=== PATIENT | female | born 1950 | race African-American/Black ===

== ENCOUNTER 2018-09-02 11:06 | Outpatient (CLI) | payer MEDICARE, BC ==
--- NOTE | 2018-09-02 13:37 | RAD ---
TWO VIEWS CHEST: Comparison: 08-05-13 History: Cough. FINDINGS: Two views of the chest show normal sized cardiomediastinal silhouette. There is no evidence of consol idation, mass, or pleural effusion. The bones are unremarkable. IMPRESSION: No evidence of acute cardiopulmonary disease. POS: [facility]
--- NOTE | 2018-09-02 13:56 | RAD ---
SINUSES 3 VIEWS: Date: 09/02/18 HISTORY: Sinusitis. FINDINGS/IMPRESSION: The paranasal sinuses appear well aerated. No air fluid levels are seen. POS: [facility]
== END 2018-09-02 11:07 | disposition home or self-care (01) ==
LOC: BICRAD 11:06
PROVIDERS: ATTEND Internal Medicine
DX: R05 Cough (principal); J32.9 Chronic sinusitis, unspecified
CPT/HCPCS: 70220; 71046

== ENCOUNTER 2018-11-26 12:06 | Outpatient (CLI) | payer MEDICARE, BC ==
--- NOTE | 2018-11-26 13:35 | RAD ---
RADIOGRAPH CHEST 2 VIEWS: HISTORY: A 67-year-old female with dyspnea. FINDINGS: The thoracic aorta is tortuous and ectatic. There is no evidence of air space density, pneumothorax, or pulmonary edema. There is no cardiomegaly or pleural effusion. IMPRESSION: 1) No acute cardiopulmonary findings. 2) Ectasia of thoracic aorta. joseph [] POS: [facility]
== END 2018-11-26 12:07 | disposition home or self-care (01) ==
LOC: BICRAD 12:06
PROVIDERS: ATTEND Internal Medicine
DX: R06.02 Shortness of breath (principal); I44.7 Left bundle-branch block, unspecified; E78.5 Hyperlipidemia, unspecified; I10 Essential (primary) hypertension; R06.9 Unspecified abnormalities of breathing; I77.810 Thoracic aortic ectasia; Z79.899 Other long term (current) drug therapy
CPT/HCPCS: 36415; 71046; 80053; 80061; 82553; 84443; 84484; 85025; 85652; 86140

== ENCOUNTER 2019-01-14 21:20 | Emergency (ER) | payer MEDICARE, BC ==
--- NOTE | 2019-01-14 22:04 | RAD ---
PA AND LATERAL CHEST X-RAY: 01/14/19 HISTORY: Chest pain. COMPARISON: 11/26/18. FINDINGS: The cardiac silhouette and pulmonary vasculature are within normal limits. The lungs remain clear. Th oracic aorta remains ectatic. Degenerative changes are again noted in the spine. There has been no in terval change from prior exam. IMPRESSION: Stable chest without evidence of an acute cardiopulmonary process. POS: [facility]
--- NOTE | 2019-01-14 22:06 | RAD ---
THREE VIEWS RIGHT SHOULDER: 01/14/19 HISTORY: Chest pain and right shoulder pain. FINDINGS: There is right glenohumeral osteoarthropathy with prominent osteophytes inferiorly as well as subchon dral cystic changes involving the glenoid and humeral head. No fracture or dislocation is seen involv ing the right shoulder. IMPRESSION: Right glenohumeral osteoarthropathy without evidence of an acute osseous abnormality. POS: [facility]
[2019-01-14 22:31] LABS: #Basophils 0.1 thou/uL (0.0-0.2); #Eosinphils 0.1 thou/uL (0.0-0.7); #Lymphocytes 2.1 thou/uL (1.20-3.40); #Monocytes 0.4 thou/uL (0.11-0.59); #Neutrophils 4.1 thou/uL (1.40-6.50); %Basophils 1.1 % (0.0-1.0); %Lymphocytes 30.8 % (21.0-51.0); %Monocytes 5.9 % (0.0-10.0); %Neutrophils 60.3 % (42.0-75.0); Hemoglobin 13.4 g/dL (12.0-16.0); Mean Corpuscular HGB CONC 31.8 g/dL (32.0-36.0); Mean Corpuscular Hemoglobin 27.9 pg (27.0-31.0); Mean Corpuscular Volume 87.9 fL (78.0-98.0); Mean Platelet Volume 7.7 fL (7.4-10.4); Platelet Count 381 thou/uL (130-400); RBC Distribution Width 14.6 % (11.5-14.5); Red Blood Cell (RBC) Count 4.81 mill/uL (4.20-5.40); White Blood Cell (WBC) Count 6.8 thou/uL (4.8-10.8)
[2019-01-14 22:53] LABS: ALT (SGPT) 17 U/L (8-55); AST (SGOT) 13 U/L (5-34); Albumin 4.3 g/dL (3.4-4.8); Alkaline Phosphatase 96 U/L (40-150); Anion Gap 13 mmol/L (10-20); BUN (Urea Nitrogen) 15 mg/dL (9.8-20.1); Bilirubin, Total Less than 0.2 mg/dL (0.2-1.2); Calc. Creatinine Clearance 0 mL/min (70-130); Calcium 9.9 mg/dL (7.8-10.44); Carbon Dioxide 26 mmol/L (23-31); Chloride 105 mmol/L (98-107); Estimated GFR-MDRD 77; Globulin 3.3 g/dL (2.4-3.5); Glucose 119 mg/dL (80-115); Potassium 4.3 mmol/L (3.5-5.1); Protein, Total 7.6 g/dL (6.0-8.3); Sodium 140 mmol/L (136-145)
[2019-01-15] MEDS ORDERED: Cyclobenzaprine 10 MG TAB ONE (00:26)
== END 2019-01-15 01:16 | disposition home or self-care (01) ==
LOC: ERS 21:20
DX: R07.89 Other chest pain (principal); M79.601 Pain in right arm; I10 Essential (primary) hypertension
CPT/HCPCS: 36415; 71046; 80053; 84484; 85025; 93005

== ENCOUNTER 2019-08-02 07:08 | Emergency (ER) | payer MEDICARE, BC | END 2019-08-02 08:09 | disposition home or self-care (01) | LOC: ERS 07:08 | DX: M17.12 Unilateral primary osteoarthritis, left knee (principal); I10 Essential (primary) hypertension; Z79.899 Other long term (current) drug therapy | CPT/HCPCS: 99283 ==

== ENCOUNTER 2019-10-21 13:16 | Outpatient (CLI) | payer MEDICARE, BC ==
--- NOTE | 2019-10-21 14:16 | ULT ---
Exam: Pelvic ultrasound HISTORY: Left lower quadrant pain. COMPARISON: None TECHNIQUE: Transabdominal and endovaginal imaging of the pelvis was performed FINDINGS: Surgically absent uterus. Additionally, one of the 2 ovaries as been removed. Neither ovary is apprec iated. No solid or cystic masses or free fluid in the pelvis. IMPRESSION: Unremarkable pelvic
== END 2019-10-21 13:17 | disposition home or self-care (01) ==
LOC: BICULT 13:16
PROVIDERS: ATTEND Internal Medicine
DX: R10.32 Left lower quadrant pain (principal)
CPT/HCPCS: 76856

== ENCOUNTER 2020-07-06 10:19 | Outpatient (CLI) | payer MEDICARE, BC ==
--- NOTE | 2020-07-06 11:48 | RAD ---
RIGHT HUMERUS 2 VIEWS: Date: 07/06/2020 HISTORY: Right arm pain. COMPARISON: Right shoulder 3 views, 01/14/2019. FINDINGS: Significant osteoarthrosis changes of the glenohumeral joint, as well as some arthrosis changes of th e AC joint. No evidence for humeral fracture or dislocation. IMPRESSION: Osteoarthrosis changes, particularly of the glenohumeral joint, stable from prior study. No acute fra cture or dislocation. POS: [facility]
== END 2020-07-06 10:20 | disposition home or self-care (01) ==
LOC: BICRAD 10:19
PROVIDERS: ATTEND Internal Medicine
DX: M79.621 Pain in right upper arm (principal); M19.011 Primary osteoarthritis, right shoulder

== ENCOUNTER 2020-07-07 14:23 | Outpatient (CLI) | payer MEDICARE, BC ==
--- NOTE | 2020-07-07 15:03 | BD ---
EXAM: DEXA bone density examination HISTORY: 69-year-old postmenopausal female for screening COMPARISON: None FINDINGS: L1--bone mineral density 0.981 g/sq cm; T score -0.1 L2--bone mineral density 1.010 g/sq cm; T score -0.2 L3--bone mineral density 1.015 g/sq cm; T score -0.6 L4--bone mineral density 0.990 g/sq cm; T score -0.6 Total L1-L4--bone mineral density 0.999 g/sq cm; T score -0.4 Left femoral neck--bone mineral density0.797; T score -0.5 Total proximal left femur--bone mineral density 1.066; T score 1.0 IMPRESSION: Normal bone density.
== END 2020-07-07 14:24 | disposition home or self-care (01) ==
LOC: BICMAMMO 14:23
PROVIDERS: ATTEND Internal Medicine
DX: Z13.820 Encounter for screening for osteoporosis (principal)
CPT/HCPCS: 77080

== ENCOUNTER 2021-07-14 13:48 | Outpatient (CLI) | payer MEDICARE, BC | END 2021-07-14 13:49 | disposition home or self-care (01) | LOC: BICMAMMO 13:48 | PROVIDERS: ATTEND Anesthesiology | DX: Z12.31 Encounter for screening mammogram for malignant neoplasm of breast (principal) | CPT/HCPCS: 77063; 77067 ==

== ENCOUNTER 2022-07-20 08:43 | Outpatient (CLI) | payer MEDICARE, BC | END 2022-07-20 08:44 | disposition home or self-care (01) | LOC: BICMAMMO 08:43 | PROVIDERS: ATTEND Internal Medicine | DX: Z12.31 Encounter for screening mammogram for malignant neoplasm of breast (principal) | CPT/HCPCS: 77063; 77067 ==

== ENCOUNTER 2023-09-07 10:57 | Outpatient (CLI) | payer MEDICARE, BC | END 2023-09-07 10:58 | disposition home or self-care (01) | LOC: BICMAMMO 10:57 | PROVIDERS: ATTEND Internal Medicine | DX: Z12.31 Encounter for screening mammogram for malignant neoplasm of breast (principal) | CPT/HCPCS: 77063; 77067 ==